=== PATIENT | female | born 1935 | race Two or more races ===

== ENCOUNTER → 2025-02-06 | Emergency (ER) | payer OTHER ==
[~2025-02-06] VITALS: Ht 165.1 cm; Wt 46.7 kg
[~2025-02-06] MED LIST: AMLODIPINE BESYL5 MG PO; SYNTHROID112 MCG PO
[2025-02-06 10:54] LABS: BASO % 0.8 % (0.1-1.2); EOS # 0.03 (0.04-0.54); EOS % 0.5 % (0.7-7.0); HEMOGLOBIN 15.8 g/dL (11.2-15.7); LYMPH # 1.24 (1.18-3.74); LYMPH % 20.4 % (19.3-53.1); MEAN CORPUSCULAR HEMOGLOBIN 30.4 pg (25.6-32.2); MONO % 8.2 % (4.7-12.5); NEUT # 4.25 (1.56-6.13); NEUT % 69.8 % (34.0-71.1); PLATELET COUNT 224 K/uL (163-369); RED BLOOD COUNT 5.19 M/uL (3.93-5.22); RED CELL DISTRIBUTION WIDTH 12.7 % (11.6-14.4)
[2025-02-06 11:29] LABS: ALBUMIN 4.1 gm/dL (3.4-5.0); BILIRUBIN TOTAL 1.02 mg/dL (0.3-1.2); CALCIUM 9.5 mg/dL (8.5-10.1); CREATININE SERUM 1.24 mg/dL (0.55-1.02); GFR 40.73; GLOBULINA 4.2 G/DL (2.4-3.5); POTASSIUM 3.89 mEq/L (3.5-5.1); TOTAL PROTEIN 8.3 gm/dL (6.4-8.2)
[2025-02-06 13:40] LABS: PH,URINE 5.5 (5.0-8.0); URINE APPEARANCE Clear; URINE BILIRRUBIN Negative (NEGATIVE); URINE BLOOD Negative; URINE COLOR Dark Yellow; URINE GLUCOSE Negative (NEGATIVE); URINE KETONE Trace (NEGATIVE); URINE LEUKOCYTE Small; URINE NITRATE Negative
[2025-02-06 13:44] LABS: URINE BACTERIA 155.3 uL (0.0-1933); URINE EPITHELIAL CELLS 26.2 uL (0.0-38.8); URINE RBC 18.8 uL (0.0-20.8); URINE WBC 79.9 uL (0.0-23.2)
[2025-02-06 13:47] LABS: URINE CAST 0.58 uL (0.0-1.40); URINE PROTEIN 100 (NEGATIVE)
== END | disposition home or self-care (01) ==
LOC: ER 09:09
PROVIDERS: Emergency Medicine
DX: R07.89 Other chest pain (principal); I10 Essential (primary) hypertension; F17.210 Nicotine dependence, cigarettes, uncomplicated